=== PATIENT | male | born 1955 | race Caucasian/White ===

== ENCOUNTER → 2024-05-26 06:17 | Day surgery (SDC) | payer MEDICARE, SELFPAY | LOC: GI 06:17 | PROVIDERS: ATTENDING PHYSICIAN Internal Medicine Gastroenterology | DX: Z12.11 Encounter for screening for malignant neoplasm of colon (principal); K57.30 Diverticulosis of large intestine without perforation or abscess without bleeding; K64.8 Other hemorrhoids; D12.8 Benign neoplasm of rectum | CPT/HCPCS: 45385; 88305 ==

== ENCOUNTER → 2024-10-27 14:31 | Outpatient (REF) | payer MEDICARE, SELFPAY | LOC: RAD 14:31 | PROVIDERS: ATTENDING PHYSICIAN Nurse Practitioner Family; FAMILY PHYSICIAN Internal Medicine | DX: M54.9 Dorsalgia, unspecified (principal); I10 Essential (primary) hypertension; K21.9 Gastro-esophageal reflux disease without esophagitis; J84.10 Pulmonary fibrosis, unspecified | CPT/HCPCS: 72072; 72110 ==

== ENCOUNTER → 2025-02-09 13:47 | Outpatient (REF) | payer MEDICARE, SELFPAY | LOC: HWRAD 13:47 | PROVIDERS: ATTENDING PHYSICIAN Internal Medicine Critical Care Medicine; FAMILY PHYSICIAN Internal Medicine | DX: J84.9 Interstitial pulmonary disease, unspecified (principal) | CPT/HCPCS: 71250 ==